=== PATIENT | female | born 1940 | race Caucasian/White ===

== ENCOUNTER 2018-03-30 08:55 | Inpatient (IN) | payer OTHER ==
[~2018-03-30] VITALS: Ht 149.9 cm; Wt 66.2 kg
--- NOTE | 2018-03-30 09:34 | ED SYNCOPE COMPLAINT ---
History of Present Illness General Chief Complaint: Syncope and Near-Syncope Stated Complaint: SYNCOPE Source: patient Exam Limitations: no limitations Vital Signs & Intake/Output Vital Signs & Intake/Output Vital Signs Date Time Temp Pulse Resp B/P B/P Pulse O2 O2 Flow FiO2 Mean Ox Delivery Rate 03/30 0901 97.6 69 20 102/63 93 Room Air Allergies Coded Allergies: No Known Allergies (03/30/18) Triage Note: [facility] FROM [facility] WHERE SHE HAD A SYNCOPAL EPISODE. PT WAS ASSISTED ONTO GROUND. PT C/O LEFT SIDED NECK PAIN. PT ALSO C/O NAUSEA. PT DENIES CP/SOB. FS 114 PER EMS. PT GIVEN 4 MG ZOFRAN BY EMS Triage Nurses Notes Reviewed? yes Timing: single episode today HPI: Patient presents for evaluation of a syncopal episode that occurred at [facility] prior to arrival. Patient states that she "very sick in [facility]" and "I passed out". Patient feels that she became "overheated" due to a heavy jacket she was wearing. She felt nauseous prior to the episode but denies any associated fever , cold symptoms, vomiting, chest pain, dyspnea, abdominal pain, diarrhea or dysuria. Her states that she passed out while seated next to him at [facility]. She did not fall but didn't lose consciousness. This lasted for a few minutes until EMS was contacted. Patient is currently complaining of nausea and a severe stabbing left neck pain that began upon awakening this morning. The pain worsens with movement of the head. She states a few days ago she had a similar neck pain the other side of the neck. Past History Travel History Traveled to [place] past 21 day No Medical History Any Pertinent Medical History? see below for history Cardiovascular: hypertension, hyperlipidemia Surgical History Surgical History: non-contributory Psychosocial History What is your primary language Zambian Tobacco Use: Quit >30 days ago ETOH Use: occasional use Illicit Drug Use: denies illicit drug use Family History Hx Contributory? No Review of Systems Review of Systems Constitutional: Reports: no symptoms. EENTM: Reports: no symptoms. Respiratory: Reports: no symptoms. Cardiovascular: Reports: syncope. GI: Reports: nausea. Genitourinary: Reports: no symptoms. Musculoskeletal: Reports: no symptoms. Skin: Reports: no symptoms. Neurological/Psychological: Reports: no symptoms. All Other Systems: Reviewed and Negative Physical Exam Physical Exam Cranial Nerves: SEE BELOW Comments: Gen.: Well-nourished, well-developed, no acute respiratory distress. Patient appears tired but nontoxic. Head: Normocephalic, atraumatic. Eyes: Normal inspection bilaterally, PERRLA, EOMI Ears: Normal inspection bilaterally Nose: Normal inspection Throat/mouth : Moist mucosa Neck: Supple, full range of motion, no goiter, no carotid bruits, equal carotid pulses Heart: Regular rate and rhythm, question of soft systolic murmur Lungs: Clear to auscultation bilaterally with normal air entry Chest: Nontender Back: Normal range of motion Abdomen: Nondistended, normal bowel sounds Extremities: Normal range of motion grossly, equal radial pulses, no cyanosis clubbing or edema, equal hand grasp Neurologic: Cranial nerves 2 through 12 intact, speech is clear and without apparent aphasia, gait not assessed Skin: warm and dry Psychiatric: Calm, cooperative, no apparent delusions or hallucinations Core Measures ACS in differential dx? No CVA/TIA Diagnosis: No Sepsis Present: No Sepsis Focused Exam Completed? No Progress Differential Diagnosis: dYSRHYTHMIA, REDISTRIBUTIVE SYNCOPE, VASOVAGAL SYNCOPE, DEHYDRATION Plan of Care: Orders Procedure Date/time Status Heart Healthy Diet 03/30 D Active Misc Message 03/30 1129 Active ED Holding Orders 03/30 1129 Active Admit to inpatient 03/30 1129 Active Vital Signs 03/30 1129 Active Code Status 03/30 1129 Active MISTAKE 03/30 0942 Active URINALYSIS 03/30 0942 Active TROPONIN LEVEL 03/30 0907 Complete MAGNESIUM 03/30 0907 Complete COMPREHENSIVE METABOLIC PANEL 03/30 0907 Complete CHOLESTEROL 03/30 0907 Complete CBC WITHOUT DIFFERENTIAL 03/30 0907 Complete EKG 03/30 0907 Active Current Medications Sig/Wil Start time Last Medication Dose Stop Time Status Admin Sodium Chloride 1,000 ML ONCE ONE 03/30 0945 AC 03/30 (Normal Saline 0.9%) 03/30 1624 0949 Laboratory Tests 03/30/18 0945: Anion Gap 10, Estimated GFR > 60, BUN/Creatinine Ratio 11.3, Glucose 116 H, Calcium 9.4, Magnesium 1.8, Total Bilirubin 1.4 H, AST 16, ALT 23, Alkaline Phosphatase 78, Troponin I < 0.01, Total Protein 6.8, Albumin 4.0, Globulin 2.8, Albumin/Globulin Ratio 1.4, Cholesterol 166, CBC w Diff NO MAN DIFF REQ, RBC 4.05 L, MCV 86.8, MCH 28.4, MCHC 32.7 L, RDW 13.4, MPV 7.7, Gran % 80.0 H, Lymphocytes % 13.7 L, Monocytes % 5.5, Eosinophils % 0.5, Basophils % 0.3, Absolute Granulocytes 7.9 H, Absolute Lymphocytes 1.4, Absolute Monocytes 0.5, Absolute Eosinophils 0.1, Absolute Basophils 0 Diagnostic Imaging: Discussed w/RAD: Radiology Read, Ultrasound. Radiology Impression: PATIENT: AYAH MCINTOSH PRESENT AGE: 78 PATIENT ACCOUNT NO: [id number] : 39 LOCATION: [facility] ORDERING PHYSICIAN: Jorje Canela MD SERVICE DATE: 03/30/18 EXAM TYPE : US - [id number] DOPPLER EXAMINATION: US DUPLEX CAROTID AND VERTEBRAL CLINICAL INFORMATION: Left back pain and syncope. Evaluate for carotid dissection. COMPARISON: None TECHNIQUE: Real-time ultrasound and Doppler techniques (integrating B-mode 2D vascular images, Doppler spectral analysis and color flow Doppler imaging) were utilized to interrogate the extracranial carotid and vertebral arteries bilaterally. The degree of stenosis determined by criteria similar to NASCET. FINDINGS: RIGHT VESSELS - There is antegrade flow within the carotid and vertebral arteries. Mild atherosclerotic plaque of the carotid bulb. No evidence of carotid artery dissection. Doppler derived peak systolic velocity measurements (cm/sec) were as follows: Distal CCA: 58 ICA: 111 (with end diastolic of 29) ECA: 49 Vertebral: 93 ICA/CCA ratio is 1.91 LEFT VESSELS - There is antegrade flow within the carotid and vertebral arteries. Mild atherosclerotic plaque of the carotid bulb and proximal ICA. No evidence of carotid artery dissection. Doppler derived peak systolic velocity measurements (cm/sec) were as follows: Distal CCA: 50 ICA: 76 (with end diastolic of 20) ECA: 58 Vertebral: 43 ICA/CCA ratio is 1.52 IMPRESSION: 1. No evidence of carotid artery dissection. 2. There is antegrade flow within bilateral carotid and vertebral arteries. Atherosclerotic plaque of the carotid bulb/proximal ICA produces < 50% proximal ICA stenosis, bilaterally. No hemodynamically significant stenosis. DICTATED BY: Michael Roberts MD DATE/TIME DICTATED:03/30/188 BEATER OPERATOR:RAMANA DATE/TIME TRANSCRIBED:1027 CONFIDENTIAL, DO NOT COPY WITHOUT APPROPRIATE AUTHORIZATION. < Electronically signed in Other Vendor System> SIGNED BY: Michael Roberts MD 03/30/18 1037 CXR Impression: PATIENT: AYAH MCINTOSH PRESENT AGE: 78 PATIENT ACCOUNT NO: [id number] : 39 LOCATION: [facility] ORDERING PHYSICIAN: Jorje Canela MD SERVICE DATE: 03/30/18 EXAM TYPE: RAD - XRY-PORTABLE CHEST XRAY EXAMINATION: XR PORTABLE CHEST CLINICAL INFORMATION: Near syncope. COMPARISON: None TECHNIQUE: Portable frontal view of the chest was obtained. FINDINGS: No significant abnormality is noted involving the heart, lungs, mediastinum, bony thorax or soft tissues. IMPRESSION: Unremarkable examination. DICTATED BY: Shalonda Todd MD DATE/TIME DICTATED:03/30/18955 BEATER OPERATOR:RAMANA DATE/TIME TRANSCRIBED:03/30/18955 CONFIDENTIAL, DO NOT COPY WITHOUT APPROPRIATE AUTHORIZATION. <Electronically signed in Other Vendor System> SIGNED BY: Shalonda Todd MD 03/30/18 0959 Initial ED EKG: NSR, rate (62), LVH Comments: 03/30/2018 11:05:51 AM I have updated Ayah on her test results and other than left neck pain she offers no complaint at this time. I have discussed her case with Dr. Christensen. Departure Departure Disposition: STILL A PATIENT Condition: Stable Clinical Impression Primary Impression: Syncope Qualifiers: Syncope type: unspecified Qualified Code: R55 - Syncope and collapse Referrals: Kailyn Sharpe MD (PCP/Family) Departure Forms: Customer Survey General Discharge Information Admission Note Spoke With: Natanael Christensen MD Documentation of Exam: Documentation of any treatments & extenuating circumstances including Concerns Regarding Discharge (functional status, medication knowledge or non-compliance, living conditions, etc.) that warrant an admission rather than observation: Patient presents for evaluation of a true syncopal episode while seated at [facility]. This places her at increased risk, given her history of hyperlipidemia and hypertension, of dysrhythmia resulting in hypotension, loss of cerebral perfusion and syncope. I feel this patient requires continuous cardiac monitoring and is therefore a poor candidate for outpatient management. In addition to the need for cardiac monitoring the patient would be at risk of falling with injury during any subsequent syncopal episodes. While in the hospital patient should have serial EKGs and troponin levels and monitoring of vital signs. Cardiology consultation should be considered for the possibility of dysrhythmia. Patient's medications should be reviewed for possible medication side effects. Neurology consultation should be considered the possibility of neurogenic syncope. Given this patient's age and medical comorbidities I feel she will require a multiple day hospitalization.
--- NOTE | 2018-03-30 09:59 | RADIOLOGY REPORT ---
EXAMINATION: XR PORTABLE CHEST CLINICAL INFORMATION: Near syncope. COMPARISON: None TECHNIQUE: Portable frontal view of the chest was obtained. FINDINGS: No significant abnormality is noted involving the heart, lungs, mediastinum, bony thorax or soft tissues. IMPRESSION: Unremarkable examination.
[2018-03-30 10:03] LABS: ABSOLUTE BASOPHIL COUNT 0 /CUMM (0.0-0.2); ABSOLUTE EOSINOPHIL COUNT 0.1 /CUMM (0.0-0.7); ABSOLUTE GRANULOCYTE CT 7.9 /CUMM (1.4-6.5); ABSOLUTE LYMPH COUNT 1.4 /CUMM (1.2-3.4); ABSOLUTE MONOCYTE COUNT 0.5 /CUMM (0.10-0.60); BASOPHIL % 0.3 % (0.0-2.0); EOSINOPHIL % 0.5 % (0-5); HEMATOCRIT 35.2 % (37-47); MEAN CORPUSCULAR HGB 28.4 PG (27.0-31.0); MEAN CORPUSCULAR HGB CONC 32.7 G/DL (33.0-37.0); MEAN CORPUSCULAR VOLUME 86.8 FL (81.0-99.0); MEAN PLATELET VOLUME 7.7 FL (7.4-10.4); PLATELET COUNT 284 /CUMM (130-400); RBC DISTRIBUTION WIDTH 13.4 % (11.5-14.5); RED BLOOD CELL CT 4.05 /CUMM (4.20-5.40); WHITE BLOOD CELL COUNT 9.9 /CUMM (4.8-10.8)
--- NOTE | 2018-03-30 10:37 | ULTRASOUND REPORT ---
EXAMINATION: US DUPLEX CAROTID AND VERTEBRAL CLINICAL INFORMATION: Left back pain and syncope. Evaluate for carotid dissection. COMPARISON: None TECHNIQUE: Real-time ultrasound and Doppler techniques (integrating B-mode 2D vascular images, Doppler spectral analysis and color flow Doppler imaging) were utilized to interrogate the extracranial carotid and vertebral arteries bilaterally. The degree of stenosis determined by criteria similar to NASCET. FINDINGS: RIGHT VESSELS - There is antegrade flow within the carotid and vertebral arteries. Mild atherosclerotic plaque of the carotid bulb. No evidence of carotid artery dissection. Doppler derived peak systolic velocity measurements (cm/sec) were as follows: Distal CCA: 58 ICA: 111 (with end diastolic of 29) ECA: 49 Vertebral: 93 ICA/CCA ratio is 1.91 LEFT VESSELS - There is antegrade flow within the carotid and vertebral arteries. Mild atherosclerotic plaque of the carotid bulb and proximal ICA. No evidence of carotid artery dissection. Doppler derived peak systolic velocity measurements (cm/sec) were as follows: Distal CCA: 50 ICA: 76 (with end diastolic of 20) ECA: 58 Vertebral: 43 ICA/CCA ratio is 1.52 IMPRESSION: 1. No evidence of carotid artery dissection. 2. There is antegrade flow within bilateral carotid and vertebral arteries. Atherosclerotic plaque of the carotid bulb/proximal ICA produces < 50% proximal ICA stenosis, bilaterally. No hemodynamically significant stenosis.
[2018-03-30] MEDS ORDERED: VITAMIN D1000 UNIT PO (11:58)
[2018-03-30] MEDS ORDERED: VITAMIN B-121000 MC3 PO (11:58)
[2018-03-30] MEDS ORDERED: CALCIUM 500 +1 EAC5 PO (11:59)
[2018-03-30] MEDS ORDERED: PRAVACHOL40 M1 PO (12:05)
[2018-03-30] MEDS ORDERED: LEVOTHYROXINE50 MCG PO (12:05)
[2018-03-30] MEDS ORDERED: BENICAR20 M1 PO (12:05)
[2018-03-30] MEDS ORDERED: AMLODIPINE BES2.5 M1 PO (12:05)
--- NOTE | 2018-03-30 13:12 | History & Physical ---
Jace Anderson MD 03/30/18 1312: General Information and HPI History of Present Illness: 78 year old woman with past medical history of hypertension and hyperlipidemia brought in by ambulance after "passing out". Patient awoke around 6AM in her normal state of health when she took a shower, took her medications and got ready to go to 8 AM mass; she did skip breakfast. She wore her jacket as it looked cold outside, but was very warm by the time she arrived. She stated to her that she "didnt feel right" and needed to sit down. They sat on the pew when after a short time she "passed out". She was not moving or shaking, did not fall or suffer any injury, or have any tongue biting / lip smacking. Her reports that she was "out" for about three minutes and would "come to" for a brief moment and again become unresponsive. This happened about three times. EMS was contacted and patient was awake and alert. Her fingerstick in the field was 114. She reported nausea for which she was given zofran by EMS. For evaluation of these symptoms she was brought to the [facility]. Presently she states she feels "much better". She is complaining of left ankle and left sided neck pain that have occured side she was at [facility]. Social History She denies tobacco or recreational drugs. She drinks 3-4 glasses of wine per week on average. She lives with her at home. She is independent in all ADLs/IADLS. She ambulates without assistive devices. She denies any history of falls. Review of Systems She otherwise denies any headache, fever, chills, blurred / double vision, current lightheadedness/dizziness, chest pain, palpitations, heartburn, shortness of breath, cough, nausea, vomiting, diarrhea, constipation, urinary complaints, numbness, tingling, or weakness. Allergies/Medications Allergies: Coded Allergies: No Known Allergies (03/30/18) Home Med list Amlodipine Besylate 2.5 MG TABLET 1 TAB PO DAILY BP (Reported) Calcium Carbonate/Vitamin D3 (Calcium 500 + D Tablet) 500 MG-400 TABLET 1 TAB PO BID SUPPLEMENT (Reported) Cholecalciferol (Vitamin D3) (Vitamin D) 1,000 UNIT TABLET 1 TAB PO DAILY SUPPLEMENT (Reported) Cyanocobalamin (Vitamin B-12) 1,000 MCG TABLET 1 TAB PO DAILY SUPPLEMENT ( Reported) Levothyroxine Sodium 50 MCG TABLET 1 TAB PO DAILY THYROID (Reported) Olmesartan Medoxomil (Benicar) 20 MG TABLET 1 TAB PO DAILY BP (Reported) Pravastatin Sodium (Pravachol) 40 MG TABLET 1 TAB PO DAILY CHOLESTEROL ( Reported) Past History Travel History Traveled to [place] past 21 day No Medical History Cardiovascular: hypertension, hyperlipidemia Surgical History Surgical History: non-contributory Past Family/Social History Psychosocial History Where do you live? Home Who Do You Live With? spouse Services at Home: None Primary Language: Welsh Smoking Status: Former Smoker ETOH Use: occasional use Illicit Drug Use: denies illicit drug use Functional Ability ADLs Independent: dressing, eating, toileting, bathing. Ambulation: independent IADLs Independent: shopping, housework, finances, food prep, telephone, transportation , medication admin. Review of Systems Review of Systems Constitutional: Reports: see HPI. Exam & Diagnostic Data Last 24 Hrs of Vital Signs/I&O Vital Signs Date Time Temp Pulse Resp B/P B/P Pulse O2 O2 Flow FiO2 Mean Ox Delivery Rate 03/30 1323 98.0 72 18 142/70 97 Room Air 03/30 1141 148/78 03/30 1139 97.5 79 18 161/72 98 Room Air Room Air 03/30 0901 97.6 69 20 102/63 93 Room Air Intake & Output 03/30 1600 03/30 0800 03/30 0000 Intake Total 0 Output Total Balance 0 Intake, Oral 0 Patient 66.224 kg Weight Weight Reported by Patient Measurement Method Physical Exam General Appearance Alert, Oriented X3, Cooperative, No Acute Distress Skin No Rashes, No Breakdown, No Significant Lesion Skin Temp/Moisture Exam: Warm/Dry Sepsis Skin Exam (color): Normal for Ethnicity HEENT Atraumatic, PERRLA, EOMI, Mucous Membr. moist/pink Neck Supple, No JVD, No thryomegaly, +2 Carotid Pulse wo Bruit, No LAD Cardiovascular Regular Rate, Normal S1, Normal S2, No Murmurs, Gallops, Rubs Lungs Clear to Auscultation, Normal Air Movement Abdomen Normal Bowel Sounds, Soft, No Tenderness, No Hepatospenomegaly, No Masses Neurological Normal Speech, Strength at 5/5 X4 Ext, Normal Tone, Sensation Intact, Cranial Nerves 3-12 NL, Reflexes 2+ Extremities No Clubbing, No Cyanosis, No Edema, Normal Pulses, No Tenderness/ Swelling Vascular Normal Pulses, Pulses Symmetrical Last 24 Hrs of Labs/Ricardo: Laboratory Tests 03/30/18 0945: Anion Gap 10, Estimated GFR > 60, BUN/Creatinine Ratio 11.3, Glucose 116 H, Calcium 9.4, Magnesium 1.8, Total Bilirubin 1.4 H, AST 16, ALT 23, Alkaline Phosphatase 78, Troponin I < 0.01, Total Protein 6.8, Albumin 4.0, Globulin 2.8, Albumin/Globulin Ratio 1.4, Cholesterol 166, CBC w Diff NO MAN DIFF REQ, RBC 4.05 L, MCV 86.8, MCH 28.4, MCHC 32.7 L, RDW 13.4, MPV 7.7, Gran % 80.0 H, Lymphocytes % 13.7 L, Monocytes % 5.5, Eosinophils % 0.5, Basophils % 0.3, Absolute Granulocytes 7.9 H, Absolute Lymphocytes 1.4, Absolute Monocytes 0.5, Absolute Eosinophils 0.1, Absolute Basophils 0 Assessment/Plan Assessment: 78 year old woman with no significant past medical history brought in by ambulance for evaluation of "passing out". Patient syncopal episode seems to be multifactorial secondary to overheating and not eating breakfast but taking her medications. On exam and lab studies she does not appear to be dehydrated. Orthostatic blood pressures are unremarkable. Patient is to be observed on telemetry for 24 hours to assess for any occult arrhythmia. An echocardiogram is to be obtained to assess for baseline function. She is to receive gentle fluid hydration overnight and to be continued on all of her home medications. Physical therapy should evaluate the patient for deconditioning and gait disturbance. Problem List -Syncope -Hypertension -Hyperlipidemia Plan -Admit to telemetry floor -Telemetry monitoring -Check orthostatic blood pressures -Zofran PRN for nausea -Continue home meds: amlodipine, levothyroxine, ARB, statin -PT evaluation -Echocardiogram -Pain control with acetaminophen -Heart healthy diet -DVT PPx with SC Heparin -FULL CODE As Ranked By This Provider Problem List: 1. Syncope Qualifiers Syncope type: unspecified Qualified Code: R55 - Syncope and collapse Core Measures/Misc (08/04) Acute Coronary Syndrome ACS Diagnosis: No Congestive Heart Failure Congestive Heart Failure Diagnosis No Cerebrovascular Accident CVA/TIA Diagnosis: No VTE (View Protocol) VTE Risk Factors Age>40 No Mechanical VTE Prophylaxis d/t N/A MechProphylax Ordered No VTE Pharm Prophylaxis d/t NA PharmProphylax ordered Sepsis (View protocol) Sepsis Present: No Fermin ALBERTS,Natanael 03/30/18 1512: Attending Review Statement Attending Statement Attending MD Statement: examined this patient, discuss w/resident/PA/BACK LINE COOK, agreed w/resident/PA/BACK LINE COOK, reviewed EMR data (avail), discussed with nursing, discussed with case mgmt, amended to note Attending Assessment/Plan: Patient seen and examined. Very pleasant elderly lady with her present at the bedside. History and physical is as documented by the back office medical assistant above.Additional history from the patient and reveals that patient as a [employer] just prior to the was standing syncopal episode. She reports standing for less than 5 minutes when she felt nauseous and decided to sit down. She continued to feel nauseous and stated she felt she was going to pass out before eventually losing consciousness. reports similar a episode of loss of consciousness for years ago. At that time she was sitting in the car while he went into a bakery. By the time he came out he found her slumped over in the car. he was able to arouse her after well and then drove her home. She did not seek medical attention immediately. Eventually saw her primary care provider and a routine physical was negative according to the patient and her . Orthostatic vitals have been checked and are currently negative. However this was after IV hydration. Physical examination is currently unrevealing. Recommendations: -Telemetry monitoring. (Currently telemetry holdi in the intensive care unit) -IV hydration with half normal saline for 1 L. -Echocardiogram to rule out valvular pathology. Obtain EEG.- -Check TSH level. -Bilirubin is slightly elevated today. Repeat LFTs in a.m. Check direct and indirect bilirubin levels. -If LFTs are abnormal recommend obtaining right upper quadrant sonogram. -Mobilize patient. -Episode may have been vasovagal if no significant pathology noted on echocardiogram, EEG and she has no events on telemetry monitoring overnight consider discharge home with outpatient follow-up.
[2018-03-30 14:30] VITALS: BP 120/70
[2018-03-30 16:00] VITALS: BP 118/60
[2018-03-30 23:00] VITALS: BP 120/80
[2018-03-31 06:40] LABS: ABSOLUTE BASOPHIL COUNT 0 /CUMM (0.0-0.2); ABSOLUTE EOSINOPHIL COUNT 0.1 /CUMM (0.0-0.7); ABSOLUTE GRANULOCYTE CT 3.8 /CUMM (1.4-6.5); ABSOLUTE LYMPH COUNT 1.6 /CUMM (1.2-3.4); ABSOLUTE MONOCYTE COUNT 0.4 /CUMM (0.10-0.60); BASOPHIL % 0.5 % (0.0-2.0); EOSINOPHIL % 1.1 % (0-5); HEMATOCRIT 33.8 % (37-47); MEAN CORPUSCULAR HGB 28.6 PG (27.0-31.0); MEAN CORPUSCULAR VOLUME 86.5 FL (81.0-99.0); MEAN PLATELET VOLUME 7.6 FL (7.4-10.4); PLATELET COUNT 276 /CUMM (130-400); RBC DISTRIBUTION WIDTH 13.2 % (11.5-14.5); RED BLOOD CELL CT 3.91 /CUMM (4.20-5.40)
[2018-03-31 07:00] VITALS: BP 144/82
--- NOTE | 2018-03-31 07:33 | PN- Resident CRCU ---
Jhony ALBERTS,[facility] 03/31/18 0733: Subjective HPI/CRCU Issues: No acute events overnight. Patient states she does not have any shortness breath, chest pain, or palpitations. States that she is doing better than yesterday. Objective Vital Signs & I&O Last 8 Hrs of Vitals and I&O: Laboratory Tests 03/31/18 0605: Anion Gap 10, Estimated GFR > 60, BUN/Creatinine Ratio 12.5, Magnesium 1.8, Total Bilirubin 1.2, Direct Bilirubin 0, AST 14, ALT 12, Alkaline Phosphatase 64 , Total Protein 6.3, Albumin 3.6, CBC w Diff NO MAN DIFF REQ, RBC 3.91 L, MCV 86.5, MCH 28.6, MCHC 33.0, RDW 13.2, MPV 7.6, Gran % 64.0, Lymphocytes % 27.1, Monocytes % 7.3, Eosinophils % 1.1, Basophils % 0.5, Absolute Granulocytes 3.8, Absolute Lymphocytes 1.6, Absolute Monocytes 0.4, Absolute Eosinophils 0.1, Absolute Basophils 0 03/30/18 1623: Troponin I < 0.01 03/30/18 1535: Urinalysis LIGHT H, Urine Color YEL, Urine Clarity CLEAR, Urine pH 7.0, Ur Specific [place] 1.010, Urine Protein NEG, Urine Ketones TRACE H, Urine Nitrite NEG, Urine Bilirubin NEG, Urine Urobilinogen 0.2, Ur Leukocyte Esterase TRACE H , Ur Microscopic SEDIMENT EXAMINED, Urine RBC 1-3, Urine WBC 3-5 H, Ur Epithelial Cells FEW, Urine Bacteria FEW H, Hyaline Casts RARE H, Urine Mucus FEW, Urine Hemoglobin SMALL H, Urine Glucose >=1000 H 03/30/18 0945: Anion Gap 10, Estimated GFR > 60, BUN/Creatinine Ratio 11.3, Glucose 116 H, Calcium 9.4, Magnesium 1.8, Total Bilirubin 1.4 H, Direct Bilirubin 0.1, AST 16 , ALT 23, Alkaline Phosphatase 78, Troponin I < 0.01, Total Protein 6.8, Albumin 4.0, Globulin 2.8, Albumin/Globulin Ratio 1.4, Cholesterol 166, TSH &T3 &Free T4 Intrp 3.760, CBC w Diff NO MAN DIFF REQ, RBC 4.05 L, MCV 86.8, MCH 28.4, MCHC 32.7 L, RDW 13.4, MPV 7.7, Gran % 80.0 H, Lymphocytes % 13.7 L, Monocytes % 5.5, Eosinophils % 0.5, Basophils % 0.3, Absolute Granulocytes 7.9 H, Absolute Lymphocytes 1.4, Absolute Monocytes 0.5, Absolute Eosinophils 0.1, Absolute Basophils 0 Vital Signs Date Time Temp Pulse Resp B/P B/P Pulse O2 O2 Flow FiO2 Mean Ox Delivery Rate 03/31 0800 93 Room Air Room Air 03/31 0746 86 144/82 03/31 0746 86 144/82 03/31 0700 97.7 76 18 144/82 93 Room Air Room Air 03/31 0000 95 Room Air 03/30 2300 98.4 70 20 120/80 95 Room Air 03/30 1600 98.7 76 18 118/60 96 Room Air 03/30 1430 98.1 75 20 120/70 96 Room Air 03/30 1323 98.0 72 18 142/70 97 Room Air 03/30 1141 148/78 03/30 1139 97.5 79 18 161/72 98 Room Air Room Air 03/30 0901 97.6 69 20 102/63 93 Room Air Intake & Output 03/31 1600 03/31 0800 03/31 0000 Intake Total 687 531 Output Total 600 800 Balance 87 -269 Intake, IV 567 411 Intake, Oral 120 120 Number 0 0 Bowel Movements Output, Urine 600 800 Exam General Appearance: well developed/nourished, alert, awake Respiratory: normal breath sounds Cardiovascular: regular rate/rhythm Gastrointestinal: normal bowel sounds, soft, non-tender Extremities: 1+ lower extremity edema bilaterally Current Medications: Current Medications Sig/Wil Start time Last Medication Dose Route Stop Time Status Admin Acetaminophen 650 MG Q6P PRN 03/30 1330 AC 03/30 PO 1630 Amlodipine Besylate 2.5 MG DAILY 03/31 0900 AC 03/31 PO 0746 Heparin Sodium 5,000 UNIT Q8 03/30 1400 AC 03/31 (Porcine) SC 0640 Levothyroxine Sodium 0.05 MG DAILY AC 03/31 0700 AC 03/31 PO 0746 Losartan Potassium 50 MG DAILY 03/31 0900 AC 03/31 PO 0746 Ondansetron HCl 4 MG Q6P PRN 03/30 1330 AC IV Ondansetron HCl 0 .STK-MED ONE 05/13 0958 DC .ROUTE Ondansetron HCl 4 MG ONCE ONE 03/30 0945 DC 03/30 IV 03/30 0946 0954 Pravastatin Sodium 40 MG 1700 03/30 1700 AC 03/30 PO 1630 Sodium Chloride 1,000 ML .[id number] 03/30 1545 DC 03/30 IV 03/31 0504 1630 Sodium Chloride 1,000 ML ONCE ONE 03/30 0945 DC 03/30 IV 03/30 1624 0949 Impression/Plan Impression/Problem List Impression: 78 year female with a past medical history hypertension, hyperlipidemia, hypothyroidism BIBA for syncopal episode at [employer] possibly due to orthostatic versus vasovagal. Problem List -Syncope -elevated bilirubin -Hypertension -Hyperlipidemia -Neck pain #Syncopal episode Patient syncopal episode seems to be multifactorial secondary to overheating and not eating breakfast but taking her medications. The patient states that she usually does not eat breakfast. She states that she felt a hot flash before syncopal episode. States she has had a previous syncopal episode a few months ago. Initial BP was 102/63. On initial exam and lab studies she does not appear to be dehydrated. Orthostatic blood pressures are unremarkable however this was performed after fluid rehydration. Carotid doppler revaled therosclerotic plaque of the carotid bulb/proximal ICA produces < 50% proximal ICA stenosis, bilaterally with no hemodynamically significant stenosis. -f/u cardiology consult -f/u echo, EEG -PT evaluation #Elevated urine glucose ?diabetes Initial urinalysis revealed glucose >1000. Patient reports recent polydipsia and polyuria for several months. Reports no history of diabetes. Hgba1c normal -cont to monitor #Neck pain Patient has had neck pain x several days before admission. -f/u neck xray #Elevated Bilirubin. Elevated bilirubin appears to be resolved. Possibly lab variation. Total bili 1.4, now 1.2. Direct bili 0.1, now 0 -cont to monitor #chronic medical issues: htn, hld, hypothyroidism -Continue home meds: amlodipine, levothyroxine, ARB, statin #house keeping -Heart healthy diet -DVT PPx with SC Heparin -FULL CODE Problem List: 1. Syncope 2. Total bilirubin, elevated Pain Ratin Tomorrow's Labs & Rationales: none Plan DVT/Prophylaxis: sc heparin Misty Christian 03/31/18 1132: Attending MD Review Statement Attending Sign Off Attending Cosign Statement: I have: examined this patient, reviewed [facility] EMR data, discussd w/resident/PA/ PRODUCTION MANAGER, discussed mgmt plan w/mireya, discussed mgmt plan w/pt, agreed w/resident/PA/ PRODUCTION MANAGER. Other Findings: Syncopal episode at [employer]- likely vasovagal. BP at ER presentation was low at 102/63, Pt complains of some polyuria and polydipsia , will check A1c level. UA was positive for high glucose. Will get ehco. Will get cardio consult. Carotid showed not significant blockages. Labs reviewed ok. Pt had similar episode of syncopy few months ago . pt felt sweaty and warm prior to syncopal episode. d/w pt and pts at bedside.
--- NOTE | 2018-03-31 10:48 | Patient Discharge Instructions ---
Discharge Instructions General Discharge Information You were seen/treated for: Syncope Special Instructions: You had an ultrasound of the heart and neck that was negative for causes of fainting. Your blood pressures were also normal. You did have a fast heart rate/rhythm briefly that could explain fainting and should follow up with cardiology for that. Please follow up with your PCP in 1 week. Please follow up with your metal tank erector, Dr. Dodge, in 1 week. Acute Coronary Syndrome Inclusion Criteria At DC or during hospital stay patient has or had the following: ACS DIAGNOSIS No Discharge Core Measures Meds if any: Prescribed or Continued at Discharge Meds if any: NOT Prescribed or Continued at Discharge Congestive Heart Failure Inclusion Criteria At DC or during hospital stay patient has or had the following: CHF DIAGNOSIS No Discharge Core Measures Meds if any: Prescribed or Continued at Discharge Meds if any: NOT Prescribed or Continued at Discharge Cerebrovascular accident Inclusion Criteria At DC or during hospital stay patient has or had the following: CVA/TIA Diagnosis No Discharge Core Measures Meds if any: Prescribed or Continued at Discharge Meds if any: NOT Prescribed or Continued at Discharge Venous thromboembolism Inclusion Criteria VTE Diagnosis No VTE Type NONE VTE Confirmed by (Test) NONE Discharge Core Measures - Per Current guidelines, there needs to be overlap - treatment for the first 5 days of Warfarin therapy. - If discharged on Warfarin prior to 5 days of - overlap therapy, the patient will need to be - assessed for post discharge needs including - *Post discharge parental anticoagulation - *Warfarin and/or parental anticoagulation education - *Follow up date to check INR post discharge At least 5 days overlap therapy as Inpatient No Meds if any: Prescribed or Continued at Discharge Note: Overlap Therapy is Warfarin and Anticoagulant Meds if any: NOT Prescribed or Continued at Discharge
[2018-03-31 16:00] VITALS: BP 130/82
--- NOTE | 2018-03-31 17:44 | ECHOCARDIOGRAM REPORT ---
HARIS MCINTOSH Age: 78 : 1940 Gender: F Exam Date: 03/31/2018 11:48 Exam Location: [facility] Ht (in): 60 Wt (lb): 146 BSA: 1.70 BP: 114 / 72 Ordering Physician: Jace Anderson MD Referring Physician: Jace Anderson MD Technologist: Ashwin Reyes [facility] Room Number: [id number] Indications: Syncope and collapse Rhythm: Sinus Technical Quality: fair FINDINGS Left Ventricle Normal left ventricular size and systolic function with no obvious regional wall motion abnormalities. Mild concentric LVH. Normal left ventricular diastolic filling pattern for age. The ejection fraction is visually estimated at 60 %. Right Ventricle The right ventricle is normal in size and function. Right Atrium The right atrium is normal in size. Left Atrium The left atrium is normal in size. The interatrial septum is intact. Mitral Valve Mitral leaflet thickening. There is trace central mitral regurgitation. Aortic Valve Tricuspid aortic valve with sclerosis but no evidence stenosis. Good excursion of aortic leaflets in systole. There is mild aortic regurgitation. Tricuspid Valve The tricuspid valve is normal in structure and function. There is trace tricuspid regurgitation. Pulmonary artery systolic pressure is normal. Pulmonic Valve Structurally normal pulmonic valve. There is no pulmonic regurgitation. Pericardium Normal pericardium without effusion. No pleural effusion. Great Vessels Mildly enlarged aortic root dimension. CONCLUSIONS Normal left ventricular size and systolic function with no obvious regional wall motion abnormalities. Mild concentric LVH. Normal left ventricular diastolic filling pattern for age. The ejection fraction is visually estimated at 60 %. The right ventricle is normal in size and function. Mitral leaflet thickening. There is trace central mitral regurgitation. Tricuspid aortic valve with sclerosis but no evidence stenosis. There is mild aortic regurgitation. There is trace tricuspid regurgitation. Pulmonary artery systolic pressure is normal. Mildly enlarged aortic root dimension. Jackie Roman M.D. (Electronically Signed) Final Date: 31 Mar 2018 17:44 MEASUREMENTS (Male / Female) Normal Values 2D ECHO LV Diastolic Diameter PLAX 4.7 cm 4.2 - 5.9 / 3.9 - 5.3 cm LV Systolic Diameter PLAX 2.2 cm 2.1 - 4.0 cm LV Fractional Shortening PLAX 53.2 % 25 - 46 % LV Ejection Fraction 2D Teich 84.2 % IVS Diastolic Thickness 1.2 cm LVPW Diastolic Thickness 1.3 cm LV Relative Wall Thickness 0.5 LVOT Diameter 2.1 cm Aortic Root Diameter 3.6 cm LA Systolic Diameter LX 2.5 cm 3.0 - 4.0 / 2.7 - 3.8 cm LV Ejection Fraction MOD BP 65.8 % >= 55 % LV Cardiac Index MOD BP 2206.4 cm/minm LV Diastolic Length 4C 6.4 cm 6.9 - 10.3 cm LV Diastolic Area 4C 23.8 cm LV Diastolic Volume MOD 4C 72.0 cm LV Ejection Fraction MOD 4C 69.4 % LV Stroke Volume MOD 4C 50.0 cm LV Cardiac Index MOD 4C 2298.3 cm/minm LV Systolic Length 4C 5.7 cm LV Systolic Area 4C 12.0 cm LV Systolic Volume MOD 4C 22.0 cm LV Ejection Fraction MOD 2C 64.4 % LV Cardiac Index MOD 2C 2160.4 cm/minm LV Diastolic Volume 4C AL 75.1 cm 85 - 139 / 69 - 109 cm LV Systolic Volume 4C AL 21.4 cm LV Ejection Fraction 4C AL 71.6 % LV Stroke Volume 4C AL 53.8 cm LV Cardiac Index 4C AL 2470.8 cm/minm LV Ejection Fraction 2C AL 65.7 % LV Cardiac Index 2C AL 2221.6 cm/minm Ascending Aorta Diameter 4.0 cm DOPPLER AV Peak Velocity 138.0 cm/s AV Peak Gradient 7.6 mmHg AI Deceleration [place] 163.0 cm/s AI Peak Velocity 281.0 cm/s AI Pressure Half Time 506.0 ms AI Peak Gradient 31.6 mmHg LVOT Peak Velocity 98.2 cm/s LVOT Peak Gradient 3.9 mmHg AV Area Cont Eq pk 2.5 cm Mitral E Point Velocity 54.8 cm/s Mitral A Point Velocity 78.0 cm/s Mitral E to A Ratio 0.7 MV Deceleration Time 211.0 ms LV E' Lateral Velocity 5.5 cm/s Mitral E to LV E' Lateral Ratio 10.0 LV E' Septal Velocity 5.7 cm/s Mitral E to LV E' Septal Ratio 9.7
--- NOTE | 2018-03-31 18:10 | RADIOLOGY REPORT ---
EXAMINATION: XR CERVICAL SPINE CLINICAL INFORMATION: Neck pain. Unclear cause. No trauma history. COMPARISON: None TECHNIQUE: 3 views of the cervical spine performed on 4 images. FINDINGS: Slight exaggeration of the normal cervical lordosis. Diffuse osteopenia. No acute fracture or dislocation. Prevertebral soft tissues normal in thickness. No cervical junction and atlantoaxial articulations intact. Moderate degenerative changes seen at the atlantoaxial articulation. Moderate degenerative disc disease seen from C4-C5 down to C6-C7 with disc space narrowing, vertebral endplate sclerosis, spurring and cystic changes. Moderate facet arthropathy seen throughout the mid and lower cervical spine. Calcification of aortic arch seen. IMPRESSION: 1. Osteopenia. No acute fracture or dislocation. 2. Moderate degenerative disc disease and degenerative joint disease in mid and lower cervical spine.
[2018-03-31 19:00] VITALS: BP 140/92
--- NOTE | 2018-03-31 21:49 | ELECTROENCEPHALOGRAM REPORT ---
Electroencephalogram Report Electroencephalogram Results Date of service: 03/27/18 Attending MD: Natanael Christensen MD Brick Catcher: Carline Mendez EEG Number: [id number] Test Utilizes: 10-20 system, 21 lead 18 channel digital recording Pertinent Hx/Physical/Neuro Findings/Clin Diagnosis: Syncope, r/o seizures Inpatient Medications: Current Medications Sig/Wil Start time Last Medication Dose Route Stop Time Status Admin Acetaminophen 650 MG Q6P PRN 03/30 1330 AC 03/31 PO 1934 Amlodipine Besylate 2.5 MG DAILY 03/31 0900 AC 03/31 PO 0746 Heparin Sodium 5,000 UNIT Q8 03/30 1400 AC 03/31 (Porcine) SC 202 Levothyroxine Sodium 0.05 MG DAILY AC 03/31 0700 AC 03/31 PO 0746 Losartan Potassium 50 MG DAILY 03/31 0900 AC 03/31 PO 0746 Magnesium Oxide 400 MG 1100 03/31 1100 DC 03/31 PO 03/31 1101 1430 Ondansetron HCl 4 MG Q6P PRN 03/30 1330 AC IV Pravastatin Sodium 40 MG 1700 03/30 1700 AC 03/31 PO 1624 Sodium Chloride 1,000 ML .[id number] 03/30 1545 DC 03/30 IV 03/31 0504 1630 Interpretation: The waking background is 10 hertz moderate amplitude posterior alpha and frontally dominant beta. in drowsiness the alpha is replaced by low to moderate amplitude slowing in the theta range. Later there is bilateral spindling indicating sleep. There are no focal, lateralized or epileptiform abnormalities. Photic stimulation adds no additional information, hyperventilation was deferred. Impression: Normal in the states of wakefulness, drowsiness and brief moments of sleep. No epileptiform abnormalities are seen.
--- NOTE | 2018-03-31 22:02 | Cons- Cardiology ---
General Information and HPI Consulting Request Date of Consult: 03/31/18 Requested By: Natanael Christensen MD History of Present Illness: Ms. Cabello is a 78 year old female with history of hypertension and dyslipidemia who presented for evaluation of syncope. The patient was attending [employer] Saturday and had been standing up for a few minutes when she suddenly felt warm, lightheaded and noted a loss of vision. She sat down but subsequently passed out and was intermittently responsive for several minutes. The patient denies palpitations or associated incontinence. The patient felt tired for about 20 minutes after the event. It should be noted that her blood glucose was in the normal range according to EMS. In general this patient is mildly active and walks normally without experiencing any chest pain, pressure, tightness, shortness of breath or palpitations. She has had a prior syncopal episode. The patient does not think that she was dehydrated and was eating and drinking normally although she did skip breakfast on Saturday. Allergies/Medications Allergies: Coded Allergies: No Known Allergies (03/30/18) Home Med List: Amlodipine Besylate 2.5 MG TABLET 1 TAB PO DAILY BP (Reported) Calcium Carbonate/Vitamin D3 (Calcium 500 + D Tablet) 500 MG-400 TABLET 1 TAB PO BID SUPPLEMENT (Reported) Cholecalciferol (Vitamin D3) (Vitamin D) 1,000 UNIT TABLET 1 TAB PO DAILY SUPPLEMENT (Reported) Cyanocobalamin (Vitamin B-12) 1,000 MCG TABLET 1 TAB PO DAILY SUPPLEMENT ( Reported) Levothyroxine Sodium 50 MCG TABLET 1 TAB PO DAILY THYROID (Reported) Olmesartan Medoxomil (Benicar) 20 MG TABLET 1 TAB PO DAILY BP (Reported) Pravastatin Sodium (Pravachol) 40 MG TABLET 1 TAB PO DAILY CHOLESTEROL ( Reported) Review of Systems Review of Systems: left neck discomfort Past History Travel History Traveled to [place] past 21 day No Medical History Blood Transfusion Hx: Yes Neurological: NONE EENT: cataracts Cardiovascular: hyperlipidemia, SYNCOPE ON ADMISSION Respiratory: NONE Gastrointestinal: NONE Hepatic: NONE Renal: NONE Musculoskeletal: NONE Psychiatric: NONE Endocrine: NONE Blood Disorders: NONE Cancer(s): NONE ASSISTANT FRONT DESK MANAGER/Reproductive: NONE Surgical History Surgical History: non-contributory Psychosocial History Where Do You Live? Home Who Do You Live With? spouse Services at Home: None Primary Language: [place] Smoking Status: Former Smoker ETOH Use: occasional use Illicit Drug Use: denies illicit drug use Functional Ability ADLs Independent: dressing, eating, toileting, bathing. Ambulation: independent IADLs Independent: shopping, housework, finances, food prep, telephone, transportation , medication admin. Exam & Diagnostic Data Vital Signs and I&O Vital Signs Date Time Temp Pulse Resp B/P B/P Pulse O2 O2 Flow FiO2 Mean Ox Delivery Rate 03/31 1900 98.4 83 18 140/92 94 Room Air 03/31 1600 98.0 70 19 130/82 92 Room Air Room Air 03/31 0800 93 Room Air Room Air 03/31 0746 86 144/82 03/31 0746 86 144/82 03/31 0700 97.7 76 18 144/82 93 Room Air Room Air 03/31 0000 95 Room Air 03/30 2300 98.4 70 20 120/80 95 Room Air Intake & Output 03/31 1600 03/31 0800 03/31 0000 03/30 1600 03/30 0800 03/30 0000 Intake Total 600 687 531 0 Output Total 600 800 Balance 600 87 -269 0 Intake, IV 567 411 Intake, Oral 600 120 120 0 Number 0 0 Bowel Movements Output, Urine 600 800 Patient 146 lb Weight Weight Reported by Patient Measurement Method Physical Exam: General: WD/WN female in NAD; alert and oriented x 3 HEENT: NC/AT, PERRL, EOMI NECK: No JVD, No carotid bruit Heart: RRR w/o murmur Lungs: clear bilaterally Abdomen: soft, NT, +ve bowel sounds Extremties: no edema Assessment/Plan Assessment/Plan * This patient has syncope of unclear etiology. She does not have symptoms that are very suggestive of seizure and her EEG does not show epileptiform activity. She did not appear to be hypoglycemic and dehydrated upon initial presentation. Her BUN, creatinine and sodium were in the normal range. I have noted a brief run of SVT on telemetry. I would consider neurocardiogenic syncope or a dysrhythmia as possible causes of her syncope. Fortunately, the patient has a normal EF and therefore a malignant ventricular dysrhythmia is unlikely. * Obtain a TSH and free T4 and check a Lyme titer. Monitor on telemetry to observe for any additional episodes of SVT or possible symptomatic bradycardial or SVT. Check orthostatic blood pressures although the patient has already been re-hydrated. Consult Acknowledgment - Thank you for your consult request.
[2018-03-31 23:18] VITALS: BP 139/76
[2018-04-01 06:42] VITALS: BP 138/72
--- NOTE | 2018-04-01 06:58 | PN- Housestaff ---
Subjective Follow-up For: syncope Tele-Events Since Last Visit: sinus rhythm, HR 60-70s, no events Subjective: no complaints overnight Review of Systems Constitutional: Reports: see HPI. Objective Last 24 Hrs of Vital Signs/I&O Vital Signs Date Time Temp Pulse Resp B/P B/P Pulse O2 O2 Flow FiO2 Mean Ox Delivery Rate 04/01 0642 97.6 73 18 138/72 93 Room Air 03/31 2318 98.1 74 18 139/76 94 Room Air 03/31 1900 98.4 83 18 140/92 94 Room Air 03/31 1600 98.0 70 19 130/82 92 Room Air Room Air Physical Exam General Appearance: Alert, Oriented X3, Cooperative, No Acute Distress Neck: Supple, No JVD Cardiovascular: Regular Rate, Normal S1, Normal S2, No Murmurs Lungs: Clear to Auscultation, Normal Air Movement Abdomen: Normal Bowel Sounds, Soft, No Tenderness, No Masses Extremities: No Clubbing, No Cyanosis, Normal Pulses, 1+ bilateral lower extremity edema Current Medications: Current Medications Sig/Wil Start time Last Medication Dose Route Stop Time Status Admin Acetaminophen 650 MG .STK-MED ONE 03/31 193 DC PO 03/31 193 Acetaminophen 650 MG Q6P PRN 03/30 1330 AC 03/31 PO 1934 Amlodipine Besylate 2.5 MG DAILY 03/31 0900 AC 03/31 PO 0746 Bisacodyl 5 MG DAILY 04/01 0908 AC PO Heparin Sodium 5,000 UNIT Q8 03/30 1400 AC 04/01 (Porcine) SC 0602 Levothyroxine Sodium 0.05 MG DAILY AC 03/31 0700 AC 04/01 PO 0602 Losartan Potassium 50 MG DAILY 03/31 0900 AC 03/31 PO 0746 Magnesium Oxide 400 MG 1100 03/31 1100 DC 03/31 PO 03/31 1101 1430 Ondansetron HCl 4 MG Q6P PRN 03/30 1330 AC IV Polyethylene Glycol 17 GM DAILY 04/01 0908 AC PO Pravastatin Sodium 40 MG 1700 03/30 1700 AC 03/31 PO 1624 Senna/Docusate Sodium 2 TAB DAILY 04/01 0908 AC PO Assessment/Plan Assessment: 78 year female with a past medical history hypertension, hyperlipidemia, hypothyroidism BIBA for syncopal episode at [employer] possibly due to orthostatic versus vasovagal. Syncope Uncertain etiology, possibly vasovagal she reportedly felt hot before syncopal episode Also orthostatic hypotension, arrhythmia, dehydration, or hypoglycemia She also reports a previous syncopal episode a few months ago Negative Orthostatic blood pressures but received IVFs Carotid doppler atherosclerotic plaque of the carotid bulb but no significant stenosis Negative EEG for seizure evaluation Normal thyroid function, vitals normal, brief NSVT on telemetry Check lyme titer Cardiology consult, follow up recommendations Echocardiogram CONCLUSIONS Normal left ventricular size and systolic function with no obvious regional wall motion abnormalities. Mild concentric LVH. Normal left ventricular diastolic filling pattern for age. The ejection fraction is visually estimated at 60 %. The right ventricle is normal in size and function. Mitral leaflet thickening. There is trace central mitral regurgitation. Tricuspid aortic valve with sclerosis but no evidence stenosis. There is mild aortic regurgitation. There is trace tricuspid regurgitation. Pulmonary artery systolic pressure is normal. Mildly enlarged aortic root dimension. PT evaluation - safe ambulation for discharge to home Neck pain 1. Osteopenia. No acute fracture or dislocation. 2. Moderate degenerative disc disease and degenerative joint disease in mid and lower cervical spine. HTN: Continue amlodipine and losartan HLD: Continue statin therapy Hypothyroid: Continue synthroid TSH wnl Heart healthy diet DVT ppx-Heparin Full code Follow up with cardiology and primary care as an outpatient Problem List: 1. Syncope Pain Ratin Pain Location: n/a Pain Goal: Pain 4 or less Pain Plan: prn Tomorrow's Labs & Rationales: none
[2018-04-01 09:13] VITALS: BP 138/76
[2018-04-01 09:14] VITALS: BP 138/76
--- NOTE | 2018-04-01 09:17 | Discharge Summary ---
Visit Information Visit Dates Admission Date: 03/30/18 Discharge Date: 04/01/18 Hospital Course Course Attending Physician: Michael Altamirano MD Primary Care Physician: Dell ALBERTS,[facility] Course: Assessment: 78 year female with a past medical history hypertension, hyperlipidemia, hypothyroidism [facility] possibly due to orthostatic versus vasovagal. She was originally admitted to the ICU as a telemetry level patient as there were no beds on telemetry. Problems: #Syncopal episode Patient syncopal episode seems to be multifactorial secondary to overheating and not eating breakfast but taking her medications. The patient states that she usually does not eat breakfast. She states that she felt a hot flash before syncopal episode. States she has had a previous syncopal episode a few months ago. Initial BP was 102/63. On initial exam and lab studies she does not appear to be dehydrated. Orthostatic blood pressures are unremarkable however this was performed after fluid rehydration. Carotid doppler revaled therosclerotic plaque of the carotid bulb/proximal ICA produces < 50% proximal ICA stenosis, bilaterally with no hemodynamically significant stenosis. Echo revealed normal left ventricular size and systolic function with no obvious regional wall motion abnormalities. EEG was negative. She had a brief run of SVT. Patient advised to follow up with cardiology (Dr. Dodge) and PCP. #Elevated urine glucose Initial urinalysis revealed glucose >1000. Patient reports recent polydipsia and polyuria for several months. Reports no history of diabetes. Hgba1c was normal. #Neck pain Patient has had neck pain for several days before admission. Neck xray revealed osteopenia, moderate degenerative disc disease and degenerative joint disease in mid and lower cervical spine. #Elevated Bilirubin - resolved. Elevated bilirubin appears to be resolved. Possibly lab variation. Total bili 1.4/Dirrectly 0.1. Repeat labs revealed Tbili 1.2/Direct 0.0. #chronic medical issues: htn, hld, hypothyroidism Continued home meds: amlodipine, levothyroxine, ARB, statin. Allergies: Coded Allergies: No Known Allergies (03/30/18) Disposition Summary Disposition Principal Diagnosis: Syncope Additional Diagnosis: None Discharge Disposition: home or self care Discharge Instructions General Discharge Information Code Status: Full Code Patient's Diet: Heart healthy Patient's Activity: As tolerated Follow-Up Instructions/Appts: Follow up with PCP and cardiology (Dr. Dodge) Medications at Discharge Discharge Medications: Continue taking these medications: Cyanocobalamin (Vitamin B-12) 1,000 MCG TABLET 1 Tablet ORAL DAILY Cholecalciferol (Vitamin D3) (Vitamin D) 1,000 UNIT TABLET 1 Tablet ORAL DAILY Calcium Carbonate/Vitamin D3 (Calcium 500 + D Tablet) 500 MG-400 TABLET 1 Tablet ORAL TWICE DAILY Olmesartan Medoxomil (Benicar) 20 MG TABLET 1 Tablet ORAL DAILY Amlodipine Besylate (Amlodipine Besylate) 2.5 MG TABLET 1 Tablet ORAL DAILY Comments: Last Taken:04/01 Time:9AM Pravastatin Sodium (Pravachol) 40 MG TABLET 1 Tablet ORAL DAILY Levothyroxine Sodium (Levothyroxine Sodium) 50 MCG TABLET 1 Tablet ORAL DAILY Copies To: Kailyn Sharpe MD
== END 2018-04-01 11:50 | DRG 312 ==
LOC: ERH 08:55 → CRI 11:29 → ERHI 11:29 → 1NO 11:29 → ENRESERV 12:25 → ENTRNSPT 13:54 → EDTRNSPTSTS 14:02 → EDTRNSPT 14:02 → CRI 14:08 → CMPTRNSPT 14:31 → ENTRNSPT 03-31 18:10 → 1NO 03-31 18:47 → CMPTRNSPT 03-31 18:51 → 1NO 04-01 08:36 → ENPENDDIS 04-01 10:45 → ENTRNSPT 04-01 11:39 → EDTRNSPT 04-01 11:44 → EDTRNSPTSTS 04-01 11:44 → 1NO 04-01 11:50 → CMPTRNSPT 04-01 11:59
PROVIDERS: Emergency Medicine; Internal Medicine Interventional Cardiology
DX: R55 Syncope and collapse (principal); I47.1 Supraventricular tachycardia; E78.5 Hyperlipidemia, unspecified; I10 Essential (primary) hypertension; H26.9 Unspecified cataract; E03.9 Hypothyroidism, unspecified; M54.2 Cervicalgia
CPT/HCPCS: 1NSP; 86618; CCU; 36415; 71045; 72040; 81001; 82436; 93005; 93010; 93306; 95816; 96374; 97116-GO; 97161-GP; 97530-GO; J1644; J2405